=== PATIENT | male | born 1945 | race Caucasian/White ===

== ENCOUNTER → 2016-11-03 | Day surgery (SDC) | payer MEDICARE ==
[~2016-11-03] MED LIST: ACETAMINOPHEN 1000 MG/100 ML VIAL IV ONE; BUME1TAB PO; BUPIVACAINE/EPINEPHRINE 0.25% PF 30 ML VIAL ONE; ENOX120P SQ; LACTATED RINGER'S 1000 ML INJ 1,000 ML ONE; LISI10 PO; LORTA5 PO; LOVA10TA PO; MEPERIDINE HCL 25 MG/ML VIAL ONE; MIDAZOLAM HCL 2 MG/2 ML VIAL ONE; ONDANSETRON HCL 4 MG/2 ML VIAL IV PUSH ONE; PROPOFOL 200 MG/20 ML AMP IV ONE; WARF5 PO; ceFAZolin 2 GM PREMIX 50 ML ONE
--- NOTE | 2016-11-03 12:24 | TN ---
cc: JORDY ZELAYA MD DATE OF SURGERY: 11/03/2016 PREOPERATIVE DIAGNOSIS Left inguinal hernia POSTOPERATIVE DIAGNOSIS: Left inguinal hernia. PROCEDURE: Laparoscopic repair of left inguinal hernia with mesh. SURGEON: Jordy Zelaya MD. ] HEADING MAKER: MS Kirk 3. ANESTHESIA: General anesthesia, via LMA. ESTIMATED BLOOD LOSS 10 cc COMPLICATIONS: No complications apparent. OPERATIVE FINDINGS: The patient had a very large left spermatic cord lipoma and a small left indirect inguinal hernia. PROCEDURE IN DETAIL The patient was taken to the operating room, placed in supine position. General anesthesia via LMA was induced. The abdomen was prepped and draped in usual sterile fashion. A surgical time-out was performed to verify correct patient, procedure and site. The patient received appropriate perioperative antibiotics. Local anesthetic was injected skin and subcutaneous tissue inferior to the left of the umbilicus and a 1-2 cm incision made. Blunt dissection carried out down to the underlying anterior fascia and this was sharply incised vertically. The posterior rectus space was developed bluntly and then the dissecting balloon inserted. The dissecting balloon was then inflated and then removed. The structural wound was placed but did not allow good visualization and therefore a 10-mm balloon GelPort was placed and the extraperitoneal space insufflated to 11 mmHg. Two 5-mm ports were placed one in the suprapubic area and one in the midline. Attention was turned to left inguinal area. Dissection was initially carried out laterally and then medially, the Arun's ligament was identified and fatty tissue cleared from it. A very large lipoma of the spermatic cord was reduced out of the inguinal ring. A small indirect hernia sac was present and was reduced. The entire inguinal floor was prepared for mesh placement and a 15 x 15 cm ultra pro advanced mesh was cut to 12 x 15 cm. It was then placed in the left inguinal space and positioned appropriately. It was secured at Arun's ligament anterior medially at the rectus sheath laterally, taking care to avoid the lateral nerves. Also superior laterally just lateral to the epigastric vessels. There was good coverage of the entire floor and fatty tissue that had been reduced was assured to be on top of the mesh. There was good hemostasis in the space was then allowed to desufflate. Trocars were removed. The anterior fascia was closed with running 2-0 Vicryl suture. Skin closed with subcuticular 4-0 Monocryl as well as Dermabond. The patient tolerated the procedure well was extubated and taken to PACU in stable condition. MD SHERRILL Wang/ulises /11:59 AM /12:12 PM
== END | disposition home or self-care (01) ==
LOC: ESDC 07:20
PROVIDERS: ATTEND Surgery
DX: K40.90 Unilateral inguinal hernia, without obstruction or gangrene, not specified as recurrent (principal)
CPT/HCPCS: 00840; 49650; C1727; C1781; J0131; J0690; J2175; J2250; J2405; J3010; J7120

== ENCOUNTER 2017-08-09 13:04 | Inpatient (IN) | payer MEDICARE ==
[~2017-08-09 13:04] MED LIST changes: -ACETAMINOPHEN 1000 MG/100 ML VIAL IV ONE; -BUPIVACAINE/EPINEPHRINE 0.25% PF 30 ML VIAL ONE; -LACTATED RINGER'S 1000 ML INJ 1,000 ML ONE; -MEPERIDINE HCL 25 MG/ML VIAL ONE; -MIDAZOLAM HCL 2 MG/2 ML VIAL ONE; -ONDANSETRON HCL 4 MG/2 ML VIAL IV PUSH ONE; -PROPOFOL 200 MG/20 ML AMP IV ONE; -ceFAZolin 2 GM PREMIX 50 ML ONE
[2017-08-09] MEDS ORDERED: OXYC-396 PO (14:12)
[2017-08-09] MEDS ORDERED: TEMA15CA PO (14:12)
[2017-08-09] MEDS ORDERED: GABA300C5 PO (14:12)
[2017-08-09] MEDS ORDERED: METH500T3 PO (14:12)
[2017-08-09] MEDS ORDERED: LOVA20TA PO (14:26)
--- NOTE | 2017-08-09 14:29 | HHI.HP ---
HPI Service [facility] Hospitalists Primary Care Physician Betina Cormier MD Admission Diagnosis DVT Chief Complaint: LLE pain and swelling Travel History International Travel<30 Days: No Contact w/Intl Traveler <30 Da: No History of Present Illness Mr. Suero is a pleasant 71 y/o male with nephrotic syndrome, diagnosed by renal biopsy indicating minimal change disease in 2015, HTN, and hx of PE/DVT in 2015 previously on chronic anticoagulation with Coumadin. Pt recently underwent left total knee arthroplasty on 07/09/[address] Witt. Pt reports that following surgery he had significant pain in the left knee and reports that during PT after surgery his knee was bent "too far" and then he had increased pain and swelling. Post-operatively he went back on his Coumadin. He was noted to have an elevated INR of 5.1 on 07/19/17. His Coumadin was held and he then became subtherapeutic with labs on 07/27 noting INR 1.3. Repeat INR on 07/31 was 1.8 and then on 08/08 his INR was 2.8. Pt has had continued issues with pain and swelling centered mainly around the left knee since surgery. He followed up with Dr. Witt and the pt had an Xray of the knee which the patient reports they were told was negative. He was started on Gabapentin and was continued on various pain medications all of which did not help with pain relief. He states that he has been icing the knee for 20 mins on and 2 hours off around the clock since surgery. Pt was seen by his PCP, Dr. Cormier, who sent the pt for an US of the LLE today. This revealed persistent minimal residual thrombus involving the distal superficial femoral vein and proximal popliteal vein, and one of the posterior tibial veins, unchanged significantly when compared with earlier study. It has the appearance of acute and subacute as opposed to chronic. The imaging study was compared to previous LE US in 2016. Pts PCP requested admission for Heparin gtt and to switch the patients anticoagulant to Xarelto when appropriate. Pts swelling and pain seems to be centered mainly around the left knee. There is not much swelling or pain in the left calf. He denies any fevers or chills. Denies any abd pain, nausea/vomiting , chest pain, SOB, or palpitations. Review of Systems Constitutional: DENIES: Fever, Change in appetite, Night Sweats Eyes: DENIES: Vision loss Ears, nose, mouth, throat: DENIES: Hearing loss Respiratory: DENIES: Cough, Shortness of breath Cardiovascular: DENIES: Chest pain, Palpitations, Dyspnea on Exertion Gastrointestinal: DENIES: Abdominal pain, Diarrhea, GERD, Nausea, Vomiting Genitourinary: DENIES: Hematuria, Dysuria Musculoskeletal: COMPLAINS OF: Joint pain, Joint Swelling Integumentary: DENIES: Rash Neurologic: DENIES: Headache Psychiatric: DENIES: Confusion Past Family Social History Past Medical History Nephrotic syndrome, renal biopsy indicating minimal change disease, arteriosclerosis and fibrosis HTN Hx of PE/DVT Low back pain Renal artery aneurysm, 1.1 cm calcified mass right renal pelvis presumed to be aneurysm. Hyperlipidemia Osteoarthritis Past Surgical History Left total knee arthroplasty on 07/09/17 Laparoscopic repair of eft inguinal hernia with mesh on 11/03/[address] 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 (01/2015) Reported Medications Hydrocodone/Acetaminophen 5 mg/325 mg 1 Tab Tab 1 Tab PO Q6H PRN Prinivil 10 mg (Lisinopril) 10 Mg Tab 10 Mg PO DAILY Warfarin 5 Mg Tab 5 Mg PO 5 DAYS A WEEK Warfarin 7.5 Mg Tab 7.5 Mg PO 2XWEEK Lovastatin 20 Mg Tab 20 Mg PO HS Methocarbamol 500 Mg Tab 500 Mg PO HS PRN Oxycodone (Oxycodone HCl) 20 Mg Tab 20 Mg PO Q4H PRN Temazepam 15 Mg Cap 15 Mg PO HS PRN Gabapentin 300 Mg Cap 300 Mg PO TID Allergies: Coded Allergies: No Known Allergies (Verified , 05/25/15) Family History Noncontributory Social History Denies any alcohol, tobacco or illicit drug use Physical Exam Physical Exam GENERAL: This is a well-nourished, well-developed patient, in no apparent distress. HEENT: Atraumatic. Normocephalic. No temporal or scalp tenderness. No scleral icterus. Airway patent. NECK: Trachea midline, supple, nontender. CARDIO: Regular. RESP: CTA bilaterally. No wheezes, rales, or rhonchi. ABD: +BS, soft, non-tender, nondistended. EXT: LLE with swelling/effusion around the left knee, some minimal erythema, tenderness to the touch on the left knee NEURO: Awake and alert. Motor and sensory grossly within normal limits. Normal speech. Imaging LLE Venous Doppler US (08/09/17): - Persistent minimal residual thrombus involving the distal superficial femoral vein and proximal popliteal vein, and one of the posterior tibial veins, unchanged significantly when compared with earlier study. It has the appearance of acute and subacute as opposed to chronic. Septic Shock Reassessment Heart: Regular rate and rhythm Lungs: Clear Skin: Warm Caprini VTE Risk Assessment Caprini VTE Risk Assessment: Mod/High Risk (score >= 2) Caprini Risk Assessment Model Point Value = 1 Point Value = 2 Point Value = 3 Point Value = 5 Age 41-60 Minor surgery BMI > 25 kg/m2 Swollen legs Varicose veins or History of unexplained or recurrent spontaneous Oral contraceptives or hormone replacement Sepsis (< 1 month) Serious lung disease, including pneumonia (< 1 month) Abnormal pulmonary function Acute myocardial infarction Congestive heart failure (< 1 month) History of inflammatory bowel disease Medical patient at bed rest Age 61-74 Arthroscopic surgery Major open surgery (> 45 min) Laparoscopic surgery (> 45 min) Malignancy Confined to bed (> 72 hours) Immobilizing plaster cast Central venous access Age >= 75 History of VTE Family history of VTE Factor V Leiden Prothrombin [id number] Lupus anticoagulant Anticardiolipin antibodies Elevated serum homocysteine Heparin-induced thrombocytopenia Other congenital or acquired thrombophilia Stroke (< 1 month) Elective arthroplasty Hip, pelvis, or leg fracture Acute spinal cord injury (< 1 month) Prophylaxis Regimen Total Risk Factor Score Risk Level Prophylaxis Regimen 0-1 Low Early ambulation 2 Moderate Order ONE of the following: *Sequential Compression Device (SCD) *Heparin 5000 units SQ BID 3-4 Higher Order ONE of the following medications: *Heparin 5000 units SQ TID *Enoxaparin/Lovenox 40 mg SQ daily (WT < 150 kg, CrCl > 30 mL/min) *Enoxaparin/Lovenox 30 mg SQ daily (WT < 150 kg, CrCl > 10-29 mL/min) *Enoxaparin/Lovenox 30 mg SQ BID (WT < 150 kg, CrCl > 30 mL/min) AND/OR *Sequential Compression Device (SCD) 5 or more Highest Order ONE of the following medications: *Heparin 5000 units SQ TID (Preferred with Epidurals) *Enoxaparin/Lovenox 40 mg SQ daily (WT < 150 kg, CrCl > 30 mL/min) *Enoxaparin/Lovenox 30 mg SQ daily (WT < 150 kg, CrCl > 10-29 mL/min) *Enoxaparin/Lovenox 30 mg SQ BID (WT < 150 kg, CrCl > 30 mL/min) AND *Sequential Compression Device (SCD) Assessment and Plan Problem List: (1) Left knee pain ICD Codes: M25.562 - Pain in left knee Plan: Patient is a 71 y/o male with nephrotic syndrome, diagnosed by renal biopsy indicating minimal change disease in 2015, HTN, and hx of PE/DVT in 2015 previously on chronic anticoagulation with Coumadin. Pt recently underwent left total knee arthroplasty on 07/09/[address] Witt. Pt reports that following surgery he had significant pain in the left knee and reports that during PT after surgery his knee was bent "too far" and then he had increased pain and swelling. Left Knee pain/swelling s/p Left total knee arthroplasty on 07/09/[address] Witt E DVT - Pt has had continued issues with pain and swelling centered mainly around the left knee since surgery per the pt - He followed up with Dr. Witt and the pt had an Xray of the knee which the patient reports they were told was negative. He was started on Gabapentin and was continued on various pain medications all of which did not help with pain relief - Post-operatively he went back on his Coumadin. He was noted to have an elevated INR of 5.1 on 07/19/17. His Coumadin was held and he then became subtherapeutic with labs on 07/27 noting INR 1.3. Repeat INR on 07/31 was 1.8 and then on 08/08 his INR was 2.8. . - US of the LLE (08/09/17) --> persistent minimal residual thrombus involving the distal superficial femoral vein and proximal popliteal vein, and one of the posterior tibial veins, unchanged significantly when compared with earlier study. It has the appearance of acute and subacute as opposed to chronic. The imaging study was compared to previous LE US in 2016. - Pts PCP requested admission for Heparin gtt and to switch the patients anticoagulant to Xarelto when appropriate. - Check STAT INR, CBC, and CMP before starting on any anticoagulants - Check Noncontrasted CT of the left knee as well as the swelling is centered mainly around the left knee and not so much in the calf. - Repeat labs in AM - Supportive care HTN - Cont. home meds, lisinopril - Monitor Hx of nephrotic syndrome, minimal change disease - Pt is not on any diuretics currently - Follows with Dr. cadena - Labs on 06/26/17 with Cr 1.33/BUN 15, GFR 53 (2) DVT (deep venous thrombosis) ICD Codes: I82.409 - Acute embolism and thrombosis of unspecified deep veins of unspecified lower extremity Status: Acute Plan: - See above (3) Status post left knee replacement ICD Codes: Z96.652 - Presence of left artificial knee joint Plan: - See above (4) HTN (hypertension) ICD Codes: I10 - HTN (hypertension) Status: Chronic Plan: - See above. (5) Nephrotic syndrome ICD Codes: N04.9 - Nephrotic syndrome Status: Chronic Plan: - See above. Physician Certification 2 Midnight Certification Type: Admission for Inpatient Services Order for Inpatient Services The services are ordered in accordance with Medicare regulations or non- Medicare payer requirements, as applicable. In the case of services not specified as inpatient-only, they are appropriately provided as inpatient services in accordance with the 2-midnight benchmark. Estimated LOS (days): 3 3 days is the estimated time the patient will need to remain in the hospital, assuming treatment plan goals are met and no additional complications. Post-Hospital Plan: Not yet determined Problem Qualifiers (1) Left knee pain: Qualified Codes: M25.562 - Pain in left knee; G89.29 - Other chronic pain (2) DVT (deep venous thrombosis): Radhika Escobedo Aug 09, 2017 14:29 Arie Gonzalez MD Aug 10, 2017 21:34
[2017-08-09] MEDS ORDERED: WARF-23 PO (14:30)
[2017-08-09] MEDS ORDERED: WARF-21 PO (14:30)
[2017-08-09 15:00] VITALS: BP 126/71; PULSE 66; RESP 19; TEMP 97.7; O2SAT 95
[2017-08-09] MEDS ORDERED: ONDANSETRON HCL 4 MG/2 ML VIAL IV PRN (15:30)
[2017-08-09] MEDS ORDERED: ACETAMINOPHEN 325 MG TAB PO PRN (15:30)
--- NOTE | 2017-08-09 16:16 | RADRPT ---
EXAM DATE/TIME: 08/09/2017 15:36 [facility] COMPARISON: No previous studies available for comparison. INDICATIONS : Left leg swelling. MEDICAL HISTORY : Hypertension. Hypercholesterolemia. Myocardial infarction. Coronary artery disease. Renal arter y aneurysm. Arthritis. Renal disease. Carcinoma, skin. SURGICAL HISTORY : Tonsillectomy. Appendectomy. Cardiac catheterization. Left rotator cuff repair. Skin cancer remov al from finger. ENCOUNTER: Initial ACUITY: 1 day PAIN SCORE: 0/10 LOCATION: Left leg. TECHNIQUE: Venous ultrasound of the leg was performed from the inguinal ligament to the proximal calf. Real-patrice e, color Doppler and spectral tracing, compression and augmentation techniques were used. FINDINGS: There is partially occlusive thrombus present in the peritoneal and posterior tibial veins in the lef t calf. The deep venous structures are otherwise normal in appearance and fully compressible. Specifi yanci, there is no evidence of clot in the common femoral vein, superficial femoral vein or popliteal vein. The visualized iliac is normal. The saphenous vein is patent. CONCLUSION: Nonocclusive calf DVT. Jero Oconnor MD on August 09, 2017 at 16:12 Board Certified Radiologist. This report was verified electronically.
[2017-08-09 16:41] LABS: BASOPHIL % 0.4 % (0.0-2.0); EOSINOPHIL # 0.1 TH/MM3 (0-0.4); EOSINOPHIL % 2.2 % (0.0-4.0); HEMATOCRIT 35.7 % (39.0-51.0); HEMO FLAGS DIFF FINAL; LYMPH % 25.4 % (9.0-44.0); LYMPHOCYTE # 1.3 TH/MM3 (1.0-4.8); MEAN CELL VOLUME 100.1 FL (80.0-100.0); MEAN CORPUSCULAR HEMOGLOBIN 33.6 PG (27.0-34.0); MEAN CORPUSCULAR HGB CONC 33.6 % (32.0-36.0); PLATELET COUNT 187 TH/MM3 (150-450); RED BLOOD COUNT 3.57 MIL/MM3 (4.50-5.90); RED CELL DISTRIBUTION WIDTH 13.5 % (11.6-17.2); WHITE BLOOD COUNT 5.1 TH/MM3 (4.0-11.0)
[2017-08-09 16:48] LABS: INTERNATIONAL NORMALIZED RATIO 2.2 RATIO; PROTHROMBIN TIME - PATIENT 22.6 SEC (9.8-11.6)
[2017-08-09 16:55] LABS: ALT (GPT) 25 U/L (12-78); ANION GAP 4 MEQ/L (5-15); BICARBONATE 30.5 MEQ/L (21.0-32.0); BLOOD UREA NITROGEN 15 MG/DL (7-18); CHLORIDE 106 MEQ/L (98-107); GLOMERULAR FILTRATION RATE 60 ML/MIN (>89); POTASSIUM 3.8 MEQ/L (3.5-5.1); SODIUM (NA) 140 MEQ/L (136-145)
[2017-08-09 16:58] LABS: ALKALINE PHOSPHATASE 95 U/L (45-117); AST (GOT) 15 U/L (15-37); TOTAL BILIRUBIN ADULT 0.4 MG/DL (0.2-1.0)
--- NOTE | 2017-08-09 17:00 | RADRPT ---
EXAM DATE/TIME: 08/09/2017 16:35 [facility] COMPARISON: No previous studies available for comparison. INDICATIONS : Left knee pain and swelling, post operative by one month. RADIATION DOSE: 7.92 CTDIvol (mGy) MEDICAL HISTORY : Cardiovascular disease. Hypertension. Renal insufficiency.Skin cancer, DVT SURGICAL HISTORY : Appendectomy. Total knee replacement, left. ENCOUNTER: Initial ACUITY: 1 day PAIN SCALE: 8/10 LOCATION: Left knee TECHNIQUE: Volumetric scanning of the knee was performed. Using automated exposure control and adjustment of th e mA and/or kV according to patient size, radiation dose was kept as low as reasonably achievable to obtain optimal diagnostic quality images. DICOM format image data is available electronically for re view and comparison. FINDINGS: The patient is status post arthroplasty with femoral and tibial components in place. There is ex tensive metal streak artifact severely limiting visualization through portions of the knee. Postopera tive changes are noted involving the patella. The prosthetic components appear grossly intact and in normal alignment. There is evidence of at least a moderate joint effusion filling the suprapatellar b ursa region. There is no evidence of acute fracture or malalignment. CONCLUSION: 1. Status post arthroplasty with extensive streak artifact. 2. Moderate joint effusion. 3. No evidence of fracture or malalignment. Jah Rivera MD on August 09, 2017 at 16:56 Board Certified Radiologist. This report was verified electronically.
[2017-08-09 20:00] VITALS: BP 119/61; PULSE 61; RESP 22; TEMP 97; O2SAT 93
[2017-08-09] MEDS ORDERED: PRAVASTATIN SOD 20 MG TAB PO SCH (21:00)
[2017-08-09] MEDS ORDERED: TEMAZEPAM 15 MG CAP PO PRN (21:00)
[2017-08-10] VITALS: BP 121/61; PULSE 61; RESP 22; TEMP 96.5; O2SAT 95
[2017-08-10] MEDS ORDERED: RIVAROXABAN 15 MG TAB PO ONE (00:15)
[2017-08-10 05:36] LABS: AUTOMATED NEUTROPHIL # 2.3 TH/MM3 (1.8-7.7); BASOPHIL % 0.5 % (0.0-2.0); EOSINOPHIL # 0.2 TH/MM3 (0-0.4); EOSINOPHIL % 3.6 % (0.0-4.0); HEMATOCRIT 35.9 % (39.0-51.0); HEMO FLAGS DIFF FINAL; LYMPH % 30.7 % (9.0-44.0); LYMPHOCYTE # 1.3 TH/MM3 (1.0-4.8); MEAN CELL VOLUME 101.3 FL (80.0-100.0); MEAN CORPUSCULAR HEMOGLOBIN 33.5 PG (27.0-34.0); MEAN CORPUSCULAR HGB CONC 33.1 % (32.0-36.0); MONO % 12.6 % (0.0-8.0); NEUT % 52.6 % (16.0-70.0); PLATELET COUNT 180 TH/MM3 (150-450); RED BLOOD COUNT 3.54 MIL/MM3 (4.50-5.90); RED CELL DISTRIBUTION WIDTH 13.4 % (11.6-17.2); WHITE BLOOD COUNT 4.3 TH/MM3 (4.0-11.0)
[2017-08-10 05:41] LABS: INTERNATIONAL NORMALIZED RATIO 2.5 RATIO; PROTHROMBIN TIME - PATIENT 25.5 SEC (9.8-11.6)
[2017-08-10 05:55] LABS: BICARBONATE 29.7 MEQ/L (21.0-32.0); MAGNESIUM 1.8 MG/DL (1.5-2.5); POTASSIUM 4.2 MEQ/L (3.5-5.1)
[2017-08-10 08:00] VITALS: BP 108/67; PULSE 63; RESP 16; TEMP 97.3; O2SAT 94
[2017-08-10] MEDS ORDERED: LISINOPRIL 10 MG TAB PO SCH (09:00)
--- NOTE | 2017-08-10 09:52 | HHI.PR ---
Subjective Remarks Pt still with pain and swelling in the left knee He is ambulating to the bathroom without too much difficulty Afebrile Objective Vitals Vital Signs Date Time Temp Pulse Resp B/P (MAP) Pulse Ox O2 Delivery O2 Flow Rate FiO2 08/10/17 05:13 18 08/10/17 00:00 96.5 61 22 121/61 (81) 95 08/09/17 20:00 97.0 61 22 119/61 (80) 93 08/09/17 15:00 97.7 66 19 126/71 (89) 95 Result Diagram: 08/10/177 08/10/177 Other Results Laboratory Tests Test 08/09/17 15:22 08/10/17 04:37 White Blood Count 5.1 TH/MM3 4.3 TH/MM3 Red Blood Count 3.57 MIL/MM3 3.54 MIL/MM3 Hemoglobin 12.0 GM/DL 11.9 GM/DL Hematocrit 35.7 % 35.9 % Mean Corpuscular Volume 100.1 FL 101.3 FL Mean Corpuscular Hemoglobin 33.6 PG 33.5 PG Mean Corpuscular Hemoglobin Concent 33.6 % 33.1 % Red Cell Distribution Width 13.5 % 13.4 % Platelet Count 187 TH/MM3 180 TH/MM3 Mean Platelet Volume 9.3 FL 9.0 FL Neutrophils (%) (Auto) 58.0 % 52.6 % Lymphocytes (%) (Auto) 25.4 % 30.7 % Monocytes (%) (Auto) 14.0 % 12.6 % Eosinophils (%) (Auto) 2.2 % 3.6 % Basophils (%) (Auto) 0.4 % 0.5 % Neutrophils # (Auto) 3.0 TH/MM3 2.3 TH/MM3 Lymphocytes # (Auto) 1.3 TH/MM3 1.3 TH/MM3 Monocytes # (Auto) 0.7 TH/MM3 0.5 TH/MM3 Eosinophils # (Auto) 0.1 TH/MM3 0.2 TH/MM3 Basophils # (Auto) 0.0 TH/MM3 0.0 TH/MM3 CBC Comment DIFF FINAL DIFF FINAL Differential Comment Prothrombin Time 22.6 SEC 25.5 SEC Prothromb Time International Ratio 2.2 RATIO 2.5 RATIO Blood Urea Nitrogen 15 MG/DL 17 MG/DL Creatinine 1.19 MG/DL 1.18 MG/DL Random Glucose 85 MG/DL 78 MG/DL Total Protein 6.6 GM/DL Albumin 3.5 GM/DL Calcium Level 9.0 MG/DL 8.7 MG/DL Alkaline Phosphatase 95 U/L Aspartate Amino Transf (AST/SGOT) 15 U/L Alanine Aminotransferase (ALT/SGPT) 25 U/L Total Bilirubin 0.4 MG/DL Sodium Level 140 MEQ/L 142 MEQ/L Potassium Level 3.8 MEQ/L 4.2 MEQ/L Chloride Level 106 MEQ/L 106 MEQ/L Carbon Dioxide Level 30.5 MEQ/L 29.7 MEQ/L Anion Gap 4 MEQ/L 6 MEQ/L Estimat Glomerular Filtration Rate 60 ML/MIN 61 ML/MIN Magnesium Level 1.8 MG/DL Imaging Last Impressions Lower Extremity Ultrasound 08/09/17 0000 Signed Impressions: Service Date/Time: July 15:36 - CONCLUSION: Nonocclusive calf DVT. Jero Oconnor MD Lower Extremity CT 08/09/17 0000 Signed Impressions: Service Date/Time: July 16:35 - CONCLUSION: 1. Status post arthroplasty with extensive streak artifact. 2. Moderate joint effusion. 3. No evidence of fracture or malalignment. Jah Rivera MD LLE Venous Doppler US (08/09/17): - Persistent minimal residual thrombus involving the distal superficial femoral vein and proximal popliteal vein, and one of the posterior tibial veins, unchanged significantly when compared with earlier study. It has the appearance of acute and subacute as opposed to chronic. Objective Remarks General: NAD, AAOx3 Chest: CTA Cardiac: Regular Abd: +BS, soft ND/NT Ext: Left knee effusion and some tenderness to palpation, no calf swelling or pain bilaterally A/P Problem List: (1) Left knee pain ICD Codes: M25.562 - Pain in left knee Plan: Patient is a 71 y/o male with nephrotic syndrome, diagnosed by renal biopsy indicating minimal change disease in 2015, HTN, and hx of PE/DVT in 2015 previously on chronic anticoagulation with Coumadin. Pt recently underwent left total knee arthroplasty on 07/09/[address] Witt. Pt reports that following surgery he had significant pain in the left knee and reports that during PT after surgery his knee was bent "too far" and then he had increased pain and swelling. Left Knee pain/swelling s/p Left total knee arthroplasty on 07/09/[address] Witt [facility] DVT - Pt has had continued issues with pain and swelling centered mainly around the left knee since surgery per the pt - He followed up with Dr. Witt and the pt had an Xray of the knee which the patient reports they were told was negative. He was started on Gabapentin and was continued on various pain medications all of which did not help with pain relief - Post-operatively he went back on his Coumadin. He was noted to have an elevated INR of 5.1 on 07/19/17. His Coumadin was held and he then became subtherapeutic with labs on 07/27 noting INR 1.3. Repeat INR on 07/31 was 1.8 and then on 08/08 his INR was 2.8. - Outpatient US of the LLE (08/09/17) --> persistent minimal residual thrombus involving the distal superficial femoral vein and proximal popliteal vein, and one of the posterior tibial veins, unchanged significantly when compared with earlier study. It has the appearance of acute and subacute as opposed to chronic. The imaging study was compared to previous LE US in 2016. - Pts PCP requested admission for Heparin gtt and to switch the patients anticoagulant to Xarelto when appropriate. - STAT INR at admission was therapeutic at 2.2 - We obtained a repeat LE Doppler US on the LLE at admission which noted a nonocclusive calf DVT in the peritoneal and posterior tibial veins of the left calf. The deep venous structures are otherwise normal in appearance and fully compressible. Specifically, there is no evidence of clot in the common femoral vein, superficial femoral vein or popliteal vein. The visualized iliac is normal. The saphenous vein is patent. This was reviewed with two different radiologist, Dr. Jah Green and Dr. Jero Oconnor here [place] [facility] [place] and they both felt that this was not new clot and likely some residual clot from previous DVT which has recanalized. - Noncontrasted CT of the left knee was checked which noted s/p arthroplasty with extensive streak artifact with moderate joint effusion, but no evidence of fracture or malalignment. - Pts repeat INR on 08/10 is 2.5. No Heparin has been given as pt is therapeutic on his Coumadin. - Discussed the above findings with the pt and his extensively. - Pt has a followup scheduled with his Orthopedic surgeon, Dr. Witt, for next Friday 08/17. - Discussed with the pt and his that he is currently therapeutic on his Coumadin but that he was recommended by his PCP to change to Xarelto. They do not want to change from Coumadin at this time and will talk with their PCP about this - Pt will need to followup with his PCP, Dr. Cormier, in 1 week. - Supportive care HTN - Cont. home meds, lisinopril - Monitor Hx of nephrotic syndrome, minimal change disease - Pt is not on any diuretics currently - Follows with Dr. Alvarez - Labs on 06/26/17 with Cr 1.33/BUN 15, GFR 53 - Repeat labs at admission with Cr 1.1.9/BUN15, GFR 60 (2) DVT (deep venous thrombosis) ICD Codes: I82.409 - Acute embolism and thrombosis of unspecified deep veins of unspecified lower extremity Status: Acute Plan: - See above (3) Status post left knee replacement ICD Codes: Z96.652 - Presence of left artificial knee joint Plan: - See above (4) HTN (hypertension) ICD Codes: I10 - HTN (hypertension) Status: Chronic Plan: - See above. (5) Nephrotic syndrome ICD Codes: N04.9 - Nephrotic syndrome Status: Chronic Plan: - See above. Assessment and Plan Patient examined. Assessment and plan formulated with Radhika Escobedo PA-C. I agree with the above. repeat u/s left leg reveals no dvt above the knee and old recanulized dvt below the knee. This is in contrast to the u/s at [facility] prior to admission. We reviewed the images with our radiologist multiple times and they still feel no acute dvt problems. ct image shows at least a mod knee effusion. Pt will be discharged. He is not interested in switching from coumadin. At this point I am unable to prove coumadin failure. Unable to advise arthrocentesis at this might introduce infection to the knee prosthesis and also he is on coumadin. he has an appt with dr Witt this week. Problem Qualifiers (1) Left knee pain: Qualified Codes: M25.562 - Pain in left knee; G89.29 - Other chronic pain (2) DVT (deep venous thrombosis): Radhika Escobedo Aug 10, 2017 09:52 Arie Gonzalez MD Aug 10, 2017 14:56
[2017-08-10] MEDS ORDERED: INFLUENZA VIRUS VACCINE (QUADRIVALENT) 0.5 ML SYR IM ONE (10:00)
[2017-08-10] MEDS ORDERED: PNEUMOCOCCAL POLYVALENT INJ 25 MCG/0.5 ML SYR IM ONE (10:00)
[2017-08-10 10:17] VITALS: RESP 18
== END 2017-08-10 12:28 | disposition home or self-care (01) | DRG 565 ==
LOC: OBSVTOIN 13:43 → N07A 13:43
PROVIDERS: ADMIT Hospitalist; ATTEND Hospitalist
DX: M25.462 Effusion, left knee (principal); N04.9 Nephrotic syndrome with unspecified morphologic changes; I10 Essential (primary) hypertension; M54.5 Low back pain; G89.29 Other chronic pain; E78.5 Hyperlipidemia, unspecified; M19.90 Unspecified osteoarthritis, unspecified site; Z96.652 Presence of left artificial knee joint; Z23 Encounter for immunization; Z86.718 Personal history of other venous thrombosis and embolism; Z86.711 Personal history of pulmonary embolism; Z79.01 Long term (current) use of anticoagulants; Z85.828 Personal history of other malignant neoplasm of skin
CPT/HCPCS: 73700; 76937; 80048; 80053; 83735; 85025; 85610; 90686; 90732; 93971; Q2038